=== PATIENT | male | born 1960 | race African-American/Black ===

== ENCOUNTER 2016-10-06 21:30 | Inpatient (IN) ==
[2016-10-06] MEDS ORDERED: SODIUM CHLORIDE 0.9% 1,000 ML IV STA (21:53)
[2016-10-06] MEDS ORDERED: cefTRIAXone 1,000 MG in SODIUM CHLORIDE 0.9% 100 ML IV STA (21:54)
[2016-10-06] MEDS ORDERED: ACETAMINOPHEN 500 MG TABLET PO STA (21:54)
[2016-10-06 22:08] LABS: Basophils # 0.1 10*3/uL (0.0-0.2); Basophils % 0.4 % (0.0-0.8); Eosinophils # 0.2 10*3/uL (0.0-0.87); Eosinophils % 1.5 % (0.00-10.9); Hematocrit 51.6 VOL% (42.0-52.0); Hemoglobin 18.1 GM/DL (14.0-18.0); Immature Granulocytes % 0.5 %; Immature Granulocytes Absolute 0.08 #; Lymphocytes # 1.8 10*3/uL (1.4-4.0); Lymphocytes % 11.1 % (21.2-54.2); Mean Corpuscular HGB Conc 35.1 GM/DL (32-36); Mean Corpuscular Hemoglobin 30 PG (27-34); Mean Corpuscular Volume 86.4 FL (87-102); Mean Platelet Volume 12.2 FL (9.6-12.0); Monocytes # 1.1 10*3/uL (0.11-0.8); Monocytes % 6.6 % (1.7-12.7); Neutrophils % 79.9 % (38.7-73.9); Platelet Count 149 T/CUMM (130-400); Red Blood Count 5.97 MC/CUMM (3.8-5.5); Red Cell Distribution Width 15.2 % (9.3-17.3); White Blood Count 16.3 T/CUMM (4-12)
--- NOTE | 2016-10-06 22:11 | Emergency Department Note ---
I, Ramya Moulton, am scribing for, and in the presence of, Serenity Landis DO 21:58. IBoby Debra, DO, personally performed the services described in this documentation, ascribed by Ramya Moulton in my presence, and it is both accurate and complete . Arrival - Arrival Chief Complaint: Abdominal / Flank Pain Stated Complaint: dizzy and cold ED Nursing Triage Note: c/o being "cold" temp 102.5 at time of triage. pt states that he is also having left flank pain. pt states that he has been on several antibiotics for a uti since last year. reports occasional burning with urination. Mode of Arrival: Wheelchair Limitations: No Limitations Source: Patient - History of Present Illness HPI Narrative: Pt is a 56 y/o female who came to ED with c/o fever of 102. 5, and left flank pain that started this morning when "hopping" in bed. Pt notes he was extremely cold and dysuria. Pt has been treated for a UTI since last year. Pt states he is quitting smoking tobacco. PMHx of STENTS X2, right coronary artery; HLD; PSA HIGH, BIOPSY DONE 03/24/15 AT [facility], complicating sepsis 03/2015; HTN. 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 Onset (ago): hour(s) Consistency: constant Severity: moderate Severity scale (1-10): 5 Quality: aching (cold) Allergies/Adverse Reactions: Allergies Allergy/AdvReac Type Severity Reaction Status Date / Time No Known Allergies Allergy Unverified 06/29/16 20:01 Home Medications: Home Medications Medication Instructions Recorded Confirmed Type amLODIPine [Norvasc] 10 mg PO DAILY #30 tablet 10/19/14 10/06/16 Rx LORazepam TAB [Ativan Tab] 1 mg PO BID PRN 03/28/15 10/06/16 History Oxycodone HCl/Acetaminophen 1 each PO Q6HR PRN 03/28/15 10/06/16 History [Percocet 10-325 mg Tablet] Metoprolol Succinate Xl [Toprol Xl] 50 mg PO DAILY 07/28/15 10/06/16 History cloNIDine TAB [Catapres Tab] 0.1 mg PO BID 07/28/15 10/06/16 History Aspirin [Aspirin EC] 1 tablet PO DAILY 10/06/16 10/06/16 History Review of System - Review of System 12 point system: reviewed and no additional remarkable complaints except as stated - Review of System Constitutional: Present: fever. Absent: chills Respiratory: Absent: respiratory distress Cardiovascular: Absent: chest pain Gastrointestinal: Present: abdominal pain. Absent: nausea, vomiting Genitourinary male: Present: dysuria Musculoskeletal: Present: lower back pain (right). Absent: arm pain, leg pain, neck pain Skin: Absent: rash Neurological: Absent: headache Medical,Surgical,& Family Hx - Medical History Cardio: History of: Hypertension, Cardiovascular Problems (STENTS X2, right coronary artery) No history of: CAD (negative MPI October 2014) Psychological: History of: Anxiety Disorders Endocrine: History of: Dyslipidemia Respiratory: History of: Obstructive Sleep Apnea (felt to be cause of erythrocytosis failed to keep sleep study appointment) Genitourinary: History of: Prostate Problems (PSA HIGH, BIOPSY DONE 03/24/15 AT [facility], complicating sepsis 03/2015) Hematology: History of: Blood Disorders (erythrocytosis) - Surgical History Cardiac Surgeries: Sugical HX of: Cardiac Catheterization (STENTS X2) HEENT Surgeries: Surgical HX of: Tonsilectomy & Adenoidectomy Abdominal Surgeries: Surgical HX of: Appendectomy - Family History Family History: noncontributory Family History: Reports;: Family Cancer (dad prostate), Family Diabetes (all in family), Family Hypertension (mother and father) - Social History Smoking Status: Current every day smoker Frequency of Alcohol Use: None Type of Drug Use: None Functional capacity: independent ambulation Exam Vital Signs: Vital Signs Temperature 100.2 F H 10/07/16 00:23 Pulse Rate 93 H 10/07/16 00:23 Respiratory Rate 24 10/07/16 00:23 Blood Pressure 145/78 10/07/16 00:23 O2 Sat by Pulse Oximetry 96 10/07/16 00:23 - General General appearance: alert, in no apparent distress, obese - Head Head exam: Present: atraumatic, normocephalic - Eye Eye exam: Present: PERRL, EOMI - ENT ENT exam: Present: mucous membranes moist. Absent: mucous membranes dry - Neck Neck exam: Present: full ROM. Absent: tenderness - Chest Chest inspection: Present: symmetric chest wall rise. Absent: tenderness - Respiratory Respiratory exam: Present: normal lung sounds bilaterally. Absent: respiratory distress - Cardiovascular Cardiovascular exam: Present: tachycardia, normal heart sounds - Abdominal Exam Abdominal exam: Present: soft, tenderness (suprapubic), normal bowel sounds. Absent: distention, guarding, rebound - Extremities Exam Extremities exam: Present: full ROM. Absent: tenderness, pedal edema - Back Exam Back exam: Present: full ROM, tenderness (right flank tenderness) - Neurological Exam Neurological exam: Present: alert, oriented X3, CN II-XII intact. Absent: motor sensory deficit - Psychiatric Psychiatric exam: Present: normal affect, normal mood - Skin Skin exam: Present: warm (warm to the touch), dry Course Course Narrative: spoke with hospitalist who will admit pt. Results - Labs CBC & BMP: 10/06/16 21:50 10/06/16 21:50 Lab Results: I have reviewed the patients labs Labs: Laboratory Tests 10/06/16 10/06/16 21:50 21:50 WBC 16.3 H RBC 5.97 H Hgb 18.1 H MCV 86.4 L MPV 12.2 H Neut % (Auto) 79.9 H Lymph % (Auto) 11.1 L Neut # (Auto) 13.0 H [place] # (Auto) 1.1 H Urine Appearance Slightly hazy Urine pH 6.0 Ur Specific [place] 1.011 Urine Blood Moderate Urine Urobilinogen < 2.0 H Urine Leukocytes Large H Urine RBC 5 Urine WBC 44 Ur Squamous Epith Cells Occasional Urine Bacteria Many Urine Mucus Occasional Laboratory Tests 10/06/16 21:50 Potassium 3.4 L ALT 12 L Globulin 4.0 H Albumin/Globulin Ratio 0.8 L Disposition Clinical Impression: UTI (urinary tract infection), Abdominal pain Case discussed with: patient Disposition: Still a Patient Condition: Stable Time of Disposition: 01:09 Contact your physician if you experience:: fever over 101, Nausea/Vomiting
[2016-10-06] MEDS ORDERED: SODIUM CHLORIDE 0.9% 100 ML IV ONE (22:12)
[2016-10-06] MEDS ORDERED: cefTRIAXone 1,000 MG VIAL ONE (22:12)
[2016-10-06] MEDS ORDERED: ACETAMINOPHEN 500 MG TABLET ONE (22:12)
[2016-10-06 22:17] LABS: Apearance,Urine Slightly Hazy (Clear); Bacteria,Urine Many /HPF (Few); Bilirubin,Urine Negative (Negative); Blood, Urine Moderate mg/dL (Negative); Glucose,Urine (UA) Negative (Negative); Ketones,Urine Negative (Negative); Mucus,Urine Occasional /LPF (Occasional); Nitrite,Urine Negative (Negative); Protein,Urine Negative; RBC,Urine 5 /HPF (0-4); Squamous Epithelial Cell,Urine Occasional /HPF (0-10); Urine Color Yellow (Yellow); Urine Specific Gravity 1.011 (1.001-1.035); Urine Urobilinogen < 2.0 EU/DL (0.2-1.0); WBC,Urine 44 /HPF (0-6)
[2016-10-06 23:01] LABS: Albumin 3.5 G/DL (3.4-5.0); Bilirubin,Total 0.7 MG/DL (0.2-1.0); Calcium 8.6 MG/DL (8.5-10.1); Osmolality,Calculated 277.4 MOS/KG (273-304); Potassium 3.4 MMOL/L (3.5-5.1); Total Protein 7.5 G/DL (6.4-8.3)
[2016-10-07] MEDS ORDERED: LORazepam 1 MG TABLET PO PRN (01:41)
[2016-10-07] MEDS ORDERED: ACETAMINOPHEN 325 MG TABLET PO PRN (01:41)
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
[2016-10-07 02:40] LABS: % Iron Saturation 10.9 % (18-50); Ferritin 76.1 ng/ml (26-388)
[2016-10-07] MEDS: DEXTROSE 5% NACL 0.45% 1,000 ML IV SCH (03:00)
[2016-10-07 05:50] LABS: Risk Ratio 3.24
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
[2016-10-07] MEDS: metroNIDAZOLE 500 MG TABLET PO SCH ×2 (06:39→13:02)
--- NOTE | 2016-10-07 07:48 | Urology Consultation ---
History of Present Illness - Data of Consult Consult date: 10/07/16 - Consult Narrative History of present illness: Mr. Pena is a 56 year old male This 56-year-old black male is seen in consultation because of urinary tract infection associated with elevated temperature and elevated white count. The patient has a past history of an elevated PSA and is seeing a urologist in [place]. He has had a prostate biopsy at [facility] and developed sepsis following this. This was about 1 year ago. He has a family history of prostate cancer with his father having this and is at an advanced age. He also has a history of passing one stone. He has been treated several times this year by his nurse practitioner with antibiotics for urinary tract infection but most of these apparently were asymptomatic. The day of admission the patient developed fever and chills and was evaluated in the emergency room and was found to have a urinary tract infection and was admitted. He says his symptoms were similar to those that he developed after sepsis from the biopsy. He is complaining of low back pain primarily on the left side and dysuria. He denies any gross hematuria or difficulty voiding and other than stones and infection and elevate an elevated PSA he has no past history of any serious urological problems. He has an elevated white count and pyuria on urinalysis and his CT scan shows bilateral renal stones with small 2-3 mm stone on the right and larger stones up to 10 mm on the left but no ureteral stones no hydronephrosis no evidence of pyelonephritis. There is evidence of prostate enlargement on physical examination the patient's abdomen is soft and nontender examination of the penis and scrotum is normal. He is got to firm freely movable nodules in the left scrotum that are not associated with the testicle or epididymis. His rectal exam is negative and I am unable to adequately examine his prostate due to his size. I think the patient probably has an acute prostatitis and I agree with the current antibiotics. I am going to get a KUB to see if the stones are visualized and check a bladder scan to evaluate bladder emptying. He may eventually need a cystoscopic exam CC: Alberto Vanegas MD - Home Medications and Allergies Home Medications: Home Medications Medication Instructions Recorded Confirmed Type amLODIPine [Norvasc] 10 mg PO DAILY #30 tablet 10/19/14 10/06/16 Rx LORazepam TAB [Ativan Tab] 1 mg PO BID PRN 03/28/15 10/06/16 History Oxycodone HCl/Acetaminophen 1 each PO Q6HR PRN 03/28/15 10/06/16 History [Percocet 10-325 mg Tablet] Metoprolol Succinate Xl [Toprol Xl] 50 mg PO DAILY 07/28/15 10/06/16 History cloNIDine TAB [Catapres Tab] 0.1 mg PO BID 07/28/15 10/06/16 History Aspirin [Aspirin EC] 1 tablet PO DAILY 10/06/16 10/06/16 History Allergies/Adverse Reactions: Allergies Allergy/AdvReac Type Severity Reaction Status Date / Time No Known Allergies Allergy Unverified 06/29/16 20:01 Exam - Constitutional Vitals: Period Temp Pulse Resp BP Sys/Mortensen Pulse Ox Last 24 Hr 99.3 F-102.5 F 93-113 19-24 141-161/71-100 94-99 Results - Labs CBC & BMP: 10/06/16 21:50 10/06/16 21:50
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
--- NOTE | 2016-10-07 09:20 | Event Note ---
The patient was admitted for management of urinary tract infection. Urology has seen the patient. The patient has bilateral stones, but none appear obstructing. Urine culture is growing gram-negative rods. He is currently receiving cefuroxime and metronidazole. We will continue these antibiotics pending urine culture results.
[2016-10-07] MEDS: amLODIPine 10 MG TABLET PO SCH (09:41)
[2016-10-07] MEDS: METOPROLOL SUCCINATE XL 50 MG TABLET PO SCH (09:41)
[2016-10-07] MEDS: ASPIRIN EC 81 MG TABLET PO SCH (09:41)
[2016-10-07] MEDS: cloNIDine 0.1 MG TABLET PO SCH ×2 (09:42→20:09)
[2016-10-07] MEDS: oxyCODONE/ACETAMINOPHEN 5-325 MG TABLET PO PRN ×2 (09:42→20:20)
[2016-10-07] MEDS ORDERED: CEFUROXIME INJ 1,500 MG in SODIUM CHLORIDE 0.9% 100 ML IV SCH (12:00)
--- NOTE | 2016-10-07 16:41 | Infectious Disease Consult ---
Assessment and Plan (1) Nephrolithiasis Status: Acute Assessment and plan: The patient asked me why he keeps getting these urinary tract infections and I informed him that nephrolithiasis is the cause. As long as he has stones he will remain at increased risk for UTIs. He does have a an enlarged prostate and this may be contributing to recurring UTIs as well. He was advised that he will need urology for follow-up on discharge regarding eradicating the stones. Current Visit: Yes (2) UTI (urinary tract infection) Status: Acute Assessment and plan: Clinically I think the patient has left pyelonephritis given the CVA tenderness [though there was no mention of perinephric stranding on the CT scan]. He might have had some transient obstruction related to the renal stones. Recommendations: 1. Since the patient has been on several courses of antibiotics over the past few months I prefer to have him on a third-generation cephalosporin therefore I will stop the cefuroxime and put him on ceftriaxone 1 g daily 2. Follow-up results of the urine culture as well as blood cultures Thank you very much for the consult. Will follow. Current Visit: Yes Qualifiers: Urinary tract infection type: site unspecified Hematuria presence: with hematuria Qualified Code(s): N39.0 - Urinary tract infection, site not specified; R31.9 - Hematuria, unspecified (3) Sepsis Problem details: Prostate biopsy completed at [facility] 03/24/15. @ of 2 blood cultures are growing gram-negative rods, E. Coli. 03/24/15 ID and susceptibility lab reports indicate that this E Coli is resistant to ampicillin , quinolones, sulfa, and tetracycline. D/C empiric gentamicin and Levaquin combination therapy (received 4 days), begin rocephin Rx. Ceftin may be a reasonable oral Abx treatment option after D/C home. Status: Acute Assessment and plan: Due to urinary tract infection with leukocytosis and fever. I would not be surprised if the patient's blood cultures, positive. Antibiotic coverage has been expanded and will follow up the cultures and adjust accordingly. Current Visit: No Qualifiers: Sepsis type: sepsis due to unspecified organism Qualified Code(s): A41.9 - Sepsis, unspecified organism (4) increased cholesterol Status: Acute Current Visit: No History of Present Illness Chief complaint: Recurrent UTI History of present illness: Mr. Pena is a 56 year old male with a history of nephrolithiasis presented to hospital yesterday after he developed severe Reiger's. He was found to be febrile on admission. The patient notes that he has been having increased urinary frequency since 1-2 days and also left sided pain. He said the urine appeared dark but no gross blood. He has been having problems with recurring UTIs over the past 2 years. He says he was in hospital for the same thing in about June this year. Since then he has been on several courses of oral antibiotics, last being ciprofloxacin. Home Medications Medication Instructions Recorded Confirmed Type amLODIPine [Norvasc] 10 mg PO DAILY #30 tablet 10/19/14 10/06/16 Rx LORazepam TAB [Ativan Tab] 1 mg PO BID PRN 03/28/15 10/06/16 History Oxycodone HCl/Acetaminophen 1 each PO Q6HR PRN 03/28/15 10/06/16 History [Percocet 10-325 mg Tablet] Metoprolol Succinate Xl [Toprol Xl] 50 mg PO DAILY 07/28/15 10/06/16 History cloNIDine TAB [Catapres Tab] 0.1 mg PO BID 07/28/15 10/06/16 History Aspirin [Aspirin EC] 1 tablet PO DAILY 10/06/16 10/06/16 History Allergies Allergy/AdvReac Type Severity Reaction Status Date / Time No Known Allergies Allergy Unverified 06/29/16 20:01 12 point system: reviewed and no additional remarkable complaints except as stated (Per HPI, of note no diarrhea) Medical,Surgical,& Family Hx - Medical History Cardio: History of: Hypertension, Cardiovascular Problems (STENTS X2, right coronary artery) No history of: CAD (negative MPI October 2014) Psychological: History of: Anxiety Disorders Endocrine: History of: Dyslipidemia Respiratory: History of: Obstructive Sleep Apnea (felt to be cause of erythrocytosis failed to keep sleep study appointment) Genitourinary: History of: Prostate Problems (PSA HIGH, BIOPSY DONE 03/24/15 AT [facility], complicating sepsis 03/2015) Hematology: History of: Blood Disorders (erythrocytosis) - Surgical History Cardiac Surgeries: Sugical HX of: Cardiac Catheterization (STENTS X2, 2006, around 2010) HEENT Surgeries: Surgical HX of: Tonsilectomy & Adenoidectomy Abdominal Surgeries: Surgical HX of: Appendectomy, Hernia Repair Comment Only: Cholecystectomy (patietn does not know.) Orthopedic Surgeries: Surgical HX of;: Orthopedic Surgery (left shoulder surgery ) - Family History Family History: Reports;: Family Cancer (dad prostate), Family Diabetes (all in family), Family Hypertension (mother and father) - Social History Smoking Status: Current every day smoker Frequency of Alcohol Use: None Type of Drug Use: None Infectious Disease Exam H&P - Constitutional Vitals: Vital Signs Temp Pulse Resp BP Pulse Ox 99.1 F 83 20 148/84 97 10/07/16 16:20 10/07/16 16:20 10/07/16 16:20 10/07/16 16:20 10/07/16 16:20 Intake and Output 10/07/16 10/07/16 10/07/16 07:59 15:59 23:59 Intake Total 300 / 300 Balance 300 / 300 Intake: Oral 300 / 300 Other: Voiding Method Urinal # Voids 600 Weight 104.372 kg Patient Weight 10/07/16 23:59 Weight 104.372 kg Exam: General: Patient relatively comfortable HEENT: Mucous membranes pink and moist, anicteric acyanotic, KAYDEN, no oropharyngeal exudates Neck: Supple, no thyroid gland enlargement, no lymphadenopathy Respiratory system: Breath sounds vesicular, no crepitations or wheezes Cardiovascular: Normal S1 and S2, no murmurs appreciated Abdomen: Normal bowel sounds, soft nontender throughout, no organomegaly or mass Genitourinary: He has left CVA tenderness but no suprapubic pain or bladder distention Extremities: no edema Skin: No rash Reports - Labs CBC & BMP: 10/06/16 21:50 10/06/16 21:50 Labs: Laboratory Results - last 24 hr 10/06/16 10/06/16 10/06/16 21:50 21:50 21:50 WBC 16.3 H RBC 5.97 H Hgb 18.1 H Hct 51.6 MCV 86.4 L MCH 30 MCHC 35.1 RDW 15.2 Plt Count 149 MPV 12.2 H Neut % (Auto) 79.9 H Lymph % (Auto) 11.1 L Porter % (Auto) 6.6 Eos % (Auto) 1.5 Baso % (Auto) 0.4 Neut # (Auto) 13.0 H Lymph # (Auto) 1.8 Porter # (Auto) 1.1 H Eos # (Auto) 0.2 Baso # (Auto) 0.1 Immature Gran % 0.5 Nucleated RBC % 0.0 Immature Gran # 0.08 Nucleated RBCs # 0.00 Sodium 140 Potassium 3.4 L Chloride 107 Carbon Dioxide 24 Anion Gap 12.4 BUN 11 Creatinine 0.90 GFR Calculation 142 BUN/Creatinine Ratio 12.00 Glucose 92 Calculated Osmolality 277.4 Lactic Acid Calcium 8.6 Iron TIBC % Saturation Ferritin Total Bilirubin 0.70 AST 10 ALT 12 L Alkaline Phosphatase 81 Total Protein 7.5 Albumin 3.5 Globulin 4.0 H Albumin/Globulin Ratio 0.8 L Triglycerides Cholesterol LDL Cholesterol VLDL Cholesterol HDL Cholesterol Heart Disease Risk Ratio Lipase Urine Color Yellow Urine Appearance Slightly hazy Urine pH 6.0 Ur Specific [place] 1.011 Urine Protein Negative Urine Glucose (UA) Negative Urine Ketones Negative Urine Blood Moderate Urine Nitrate Negative Urine Bilirubin Negative Urine Urobilinogen < 2.0 H Urine Leukocytes Large H Urine RBC 5 Urine WBC 44 Ur Squamous Epith Cells Occasional Urine Bacteria Many Urine Mucus Occasional Ur Culture Indicated? Results to follow 10/06/16 10/06/16 10/07/16 21:50 21:50 00:00 WBC RBC Hgb Hct MCV MCH MCHC RDW Plt Count MPV Neut % (Auto) Lymph % (Auto) Porter % (Auto) Eos % (Auto) Baso % (Auto) Neut # (Auto) Lymph # (Auto) Porter # (Auto) Eos # (Auto) Baso # (Auto) Immature Gran % Nucleated RBC % Immature Gran # Nucleated RBCs # Sodium Potassium Chloride Carbon Dioxide Anion Gap BUN Creatinine GFR Calculation BUN/Creatinine Ratio Glucose Calculated Osmolality Lactic Acid 1.1 Calcium Iron 26 L TIBC 238 L % Saturation 10.9 L Ferritin 76.1 Total Bilirubin AST ALT Alkaline Phosphatase Total Protein Albumin Globulin Albumin/Globulin Ratio Triglycerides Cholesterol LDL Cholesterol VLDL Cholesterol HDL Cholesterol Heart Disease Risk Ratio Lipase 115.0 Urine Color Urine Appearance Urine pH Ur Specific [place] Urine Protein Urine Glucose (UA) Urine Ketones Urine Blood Urine Nitrate Urine Bilirubin Urine Urobilinogen Urine Leukocytes Urine RBC Urine WBC Ur Squamous Epith Cells Urine Bacteria Urine Mucus Ur Culture Indicated? 10/07/16 04:57 WBC RBC Hgb Hct MCV MCH MCHC RDW Plt Count MPV Neut % (Auto) Lymph % (Auto) Porter % (Auto) Eos % (Auto) Baso % (Auto) Neut # (Auto) Lymph # (Auto) Porter # (Auto) Eos # (Auto) Baso # (Auto) Immature Gran % Nucleated RBC % Immature Gran # Nucleated RBCs # Sodium Potassium Chloride Carbon Dioxide Anion Gap BUN Creatinine GFR Calculation BUN/Creatinine Ratio Glucose Calculated Osmolality Lactic Acid Calcium Iron TIBC % Saturation Ferritin Total Bilirubin AST ALT Alkaline Phosphatase Total Protein Albumin Globulin Albumin/Globulin Ratio Triglycerides 150 Cholesterol 120 LDL Cholesterol 62.0 VLDL Cholesterol 30.0 HDL Cholesterol 37 L Heart Disease Risk Ratio 3.24 Lipase Urine Color Urine Appearance Urine pH Ur Specific [place] Urine Protein Urine Glucose (UA) Urine Ketones Urine Blood Urine Nitrate Urine Bilirubin Urine Urobilinogen Urine Leukocytes Urine RBC Urine WBC Ur Squamous Epith Cells Urine Bacteria Urine Mucus Ur Culture Indicated? - Reports Microbiology: Microbiology 10/06/16 Unknown Urine Culture - Preliminary Urine,Voided Gram Negative Rods Past cultures reviewed with E. coli every time relatively sensitive. The patient had E. coli bloodstream infection about 2 years ago. - Diagnostic Findings Procedure: CT Abdomen and Pelvis: report reviewed by me (No mention of perinephric stranding, he has nephrolithiasis bilaterally including a 1 cm stone in the left kidney, nonspecific edema of the sigmoid colon)
[2016-10-07] MEDS ORDERED: cefTRIAXone 1,000 MG in SODIUM CHLORIDE 0.9% 100 ML IV SCH (17:00)
[2016-10-08] MEDS: DEXTROSE 5% NACL 0.45% 1,000 ML IV SCH ×2 (00:50→15:33)
--- NOTE | 2016-10-08 07:53 | Urology Progress Note ---
Urology - PN: Subj Interval history: The patient's temperature is down. His blood and urine cultures are positive. He has a low residual urine 66 cc on bladder scan. Stones were not seen on KUB so I will get tomograms to see if there are visualized on this x-ray. This could possibly be uric acid stones since her not seen on x-ray and some of them on the left side were 10 mm Exam - Constitutional Vitals: Period Temp Pulse Resp BP Sys/Mortensen Pulse Ox Last 24 Hr 97.5 F-100.3 F 80-99 18-22 131-152/81-91 92-97 Results - Labs CBC & BMP: 10/06/16 21:50 10/06/16 21:50
[2016-10-08] MEDS ORDERED: VANCOMYCIN INJ 1,500 MG in SODIUM CHLORIDE 0.9% 500 ML IV SCH (09:00)
[2016-10-08] MEDS: METOPROLOL SUCCINATE XL 50 MG TABLET PO SCH (09:12)
[2016-10-08] MEDS: ASPIRIN EC 81 MG TABLET PO SCH (09:12)
[2016-10-08] MEDS: cloNIDine 0.1 MG TABLET PO SCH ×2 (09:12→20:59)
[2016-10-08] MEDS: amLODIPine 10 MG TABLET PO SCH (09:12)
--- NOTE | 2016-10-08 10:48 | Infectious Disease Progress ---
Assessment and Plan (1) Nephrolithiasis Status: Acute Assessment and plan: Recurrent urinary tract infections due to nephrolithiasis. As long as he has stones he will remain at increased risk for UTIs. He does have a an enlarged prostate and this may be contributing to recurring UTIs as well. He has been advised that he will need urology for follow-up on discharge regarding eradicating the stones. Current Visit: Yes (2) UTI (urinary tract infection) Status: Acute Assessment and plan: Clinically I think the patient has left pyelonephritis given the CVA tenderness [though there was no mention of perinephric stranding on the CT scan]. He might have had some transient obstruction related to the renal stones. Recommendations: 1. Given the susceptibility of decline we can de-escalate from ceftriaxone to cefazolin 2. When he gets discharged home he can probably go on cefuroxime 500 mg p.o. twice a day for 2 weeks Current Visit: Yes Qualifiers: Urinary tract infection type: site unspecified Hematuria presence: with hematuria Qualified Code(s): N39.0 - Urinary tract infection, site not specified; R31.9 - Hematuria, unspecified (3) Sepsis Problem details: Prostate biopsy completed at [facility] 03/24/15. @ of 2 blood cultures are growing gram-negative rods, E. Coli. 03/24/15 ID and susceptibility lab reports indicate that this E Coli is resistant to ampicillin , quinolones, sulfa, and tetracycline. D/C empiric gentamicin and Levaquin combination therapy (received 4 days), begin rocephin Rx. Ceftin may be a reasonable oral Abx treatment option after D/C home. Status: Acute Assessment and plan: Due to urinary tract infection with leukocytosis and fever. No positive blood cultures. Leukocytosis improved and no fever for 24 hours. Patient overall improved. Current Visit: No Qualifiers: Sepsis type: sepsis due to unspecified organism Qualified Code(s): A41.9 - Sepsis, unspecified organism (4) increased cholesterol Status: Acute Current Visit: No (5) Positive blood culture Status: Acute Assessment and plan: Probably contaminant. I repeated blood cultures and put the patient on empiric vancomycin. If it turns out to be staph epidermidis will stop the vancomycin. Current Visit: Yes Infectious Disease - PN: Subj Interval history: Patient doing relatively okay, improved pain to the left side. No fever. Appetite is good no nausea vomiting or diarrhea. Infectious Disease Exam (PN) - Constitutional Vitals: Temp Pulse Resp BP Pulse Ox 98.9 F 70 20 143/100 90 L 10/08/16 07:40 10/08/16 07:40 10/08/16 07:40 10/08/16 07:40 10/08/16 07:40 General appearance: over weight Exam: General appearance: no acute distress - Eye Eye exam: Present: EOMI. no icterus Pupils: Present: KAYDEN - ENT ENT exam: no oral exudates - Respiratory Respiratory exam: vesicular BS, no crepitations or wheezes - Cardiovascular Cardiovascular exam: regular rate and rhythm, no murmurs - GI/Abdominal GI/Abdominal exam: normal bowel sounds, soft, less tenderness to left flank region - Extremities Exam Extremities exam: no edema - Skin Skin exam: no rash Results - Labs CBC & BMP: 10/06/16 21:50 10/06/16 21:50 Lab Results: I have reviewed the past 24 hour labs (E. coli from urine, gram- positive cocci is 1 of 2 blood cultures, not staph aureus)
--- NOTE | 2016-10-08 11:20 | Hospitalist Progress Note ---
Assessment and Plan - Time spent with patient Time spent with patient: Greater than 30 minutes (1) SIRS (systemic inflammatory response syndrome) Status: Acute Current Visit: No (2) Renal calculus, bilateral Problem details: 7 mm right mid pole stone and 12 mm left upper pole stone reported on ultrasound exam. No associated acute obstruction reported. Status : Chronic Current Visit: No (3) UTI (urinary tract infection) Status: Acute Current Visit: Yes Qualifiers: Urinary tract infection type: site unspecified Hematuria presence: with hematuria Qualified Code(s): N39.0 - Urinary tract infection, site not specified; R31.9 - Hematuria, unspecified (4) Positive blood culture Status: Acute Assessment and plan: We will continue antibiotics per infectious disease. Repeat blood cultures to ensure clearance of bacteremia vs contamination, urinalysis urine cultures. Repeat CBC and CMP to see if leukocytosis has improved since admission. Pain control. IV fluid hydration to encourage passage of stone. Current Visit: Yes Hospitalist: Subjective Interval history: Admitted for a recurrent urinary tract infection suspected to be related to his renal stones. Seen by urology, no plans for any procedures since the stones are nonobstructive. Blood cultures were positive for gram-positive, not MRSA. No fever, however he is last CBC showed marked leukocytosis. Exam - Constitutional Vitals: Period Temp Pulse Resp BP Sys/Mortensen Pulse Ox Last 24 Hr 97.5 F-99.1 F 70-90 18-22 141-152/81-100 90-97 General appearance: normal weight, no acute distress - Head Head exam: Present: normocephalic, atraumatic - Eye Eye exam: Present: EOMI Pupils: Present: KAYDEN - ENT ENT exam: Present: normal external ear exam - Respiratory Respiratory exam: Present: clear to auscultation bilaterally, chest wall tenderness. Absent: prolonged expiratory phase - Cardiovascular Cardiovascular exam: Present: regular rate and rhythm. Absent: JVD - GI/Abdominal GI/Abdominal exam: Present: normal bowel sounds, soft. Absent: distended, tenderness - Neurological Exam Neurological exam: Present: alert, oriented X3 - Psychiatric Psychiatric exam: Present: normal affect, normal mood - Skin Skin exam: Present: normal color, warm, dry Results - Labs CBC & BMP: 10/08/16 11:43 10/06/16 21:50 Lab Results: I have reviewed the past 24 hour labs Specialty Discharge - Follow Up or Referrals Follow up with: Joseph Bender MD [Physician] - 10/29/16 9:30 am
[2016-10-08 12:01] LABS: Basophils # 0.1 10*3/uL (0.0-0.2); Basophils % 0.6 % (0.0-0.8); Eosinophils # 0.2 10*3/uL (0.0-0.87); Hematocrit 50.7 VOL% (42.0-52.0); Hemoglobin 17.3 GM/DL (14.0-18.0); Immature Granulocytes % 0.8 %; Immature Granulocytes Absolute 0.08 #; Lymphocytes # 2.7 10*3/uL (1.4-4.0); Lymphocytes % 27.5 % (21.2-54.2); Mean Corpuscular HGB Conc 34.1 GM/DL (32-36); Mean Corpuscular Hemoglobin 30 PG (27-34); Mean Corpuscular Volume 86.5 FL (87-102); Monocytes # 1.3 10*3/uL (0.11-0.8); Monocytes % 13.4 % (1.7-12.7); Neutrophils # 5.5 10*3/uL (1.4-7.4); Neutrophils % 55.7 % (38.7-73.9); Platelet Count 115 T/CUMM (130-400); Red Blood Count 5.86 MC/CUMM (3.8-5.5); Red Cell Distribution Width 14.8 % (9.3-17.3); White Blood Count 9.8 T/CUMM (4-12)
[2016-10-08 12:32] LABS: Albumin 3.2 G/DL (3.4-5.0); Bilirubin,Total 0.7 MG/DL (0.2-1.0); Calcium 8.3 MG/DL (8.5-10.1); Osmolality,Calculated 280.1 MOS/KG (273-304); Potassium 3.7 MMOL/L (3.5-5.1); Total Protein 7.2 G/DL (6.4-8.3)
[2016-10-08] MEDS: ceFAZolin 2,000 MG in PREMIX 1 EACH IV SCH ×2 (15:32→19:30)
[2016-10-08] MEDS: oxyCODONE/ACETAMINOPHEN 5-325 MG TABLET PO PRN (20:58)
[2016-10-09] MEDS: ceFAZolin 2,000 MG in PREMIX 1 EACH IV SCH ×2 (04:12→11:03)
[2016-10-09 05:37] LABS: Basophils % 0.5 % (0.0-0.8); Eosinophils % 3.3 % (0.00-10.9); Hematocrit 50.1 VOL% (42.0-52.0); Hemoglobin 16.9 GM/DL (14.0-18.0); Immature Granulocytes % 0.4 %; Lymphocytes # 2.8 10*3/uL (1.4-4.0); Lymphocytes % 32.7 % (21.2-54.2); Mean Corpuscular HGB Conc 33.7 GM/DL (32-36); Mean Corpuscular Hemoglobin 29 PG (27-34); Mean Platelet Volume 11.6 FL (9.6-12.0); Monocytes % 8.1 % (1.7-12.7); Neutrophils # 4.7 10*3/uL (1.4-7.4); Platelet Count 118 T/CUMM (130-400); Red Blood Count 5.76 MC/CUMM (3.8-5.5); Red Cell Distribution Width 14.8 % (9.3-17.3); White Blood Count 8.6 T/CUMM (4-12)
[2016-10-09 05:38] LABS: Eosinophils # 0.3 10*3/uL (0.0-0.87); Immature Granulocytes Absolute 0.03 #; Monocytes # 0.7 10*3/uL (0.11-0.8)
[2016-10-09 06:17] LABS: Albumin 3.1 G/DL (3.4-5.0); Bilirubin,Total 0.6 MG/DL (0.2-1.0); Calcium 8.5 MG/DL (8.5-10.1); Osmolality,Calculated 284.8 MOS/KG (273-304); Potassium 3.7 MMOL/L (3.5-5.1); Total Protein 7.1 G/DL (6.4-8.3)
[2016-10-09] MEDS: DEXTROSE 5% NACL 0.45% 1,000 ML IV SCH (06:20)
[2016-10-09] MEDS: amLODIPine 10 MG TABLET PO SCH (10:04)
[2016-10-09] MEDS: METOPROLOL SUCCINATE XL 50 MG TABLET PO SCH (10:05)
[2016-10-09] MEDS: ASPIRIN EC 81 MG TABLET PO SCH (10:05)
[2016-10-09] MEDS: cloNIDine 0.1 MG TABLET PO SCH (10:05)
[2016-10-09] MEDS: oxyCODONE/ACETAMINOPHEN 5-325 MG TABLET PO PRN (10:11)
--- NOTE | 2016-10-09 10:24 | Urology Progress Note ---
Urology - PN: Subj Interval history: The patient is afebrile and his white count is down. Urine culture is positive for E. coli sensitive to Ancef. Tomograms of the kidneys were ordered but this has not been done so I am going to reorder this. He has stones in the kidney that are not seen on KUB possibly uric acid stones. Exam - Constitutional Vitals: Period Temp Pulse Resp BP Sys/Mortensen Pulse Ox Last 24 Hr 96.3 F-98.3 F 65-87 16-20 133-161/83-93 97-98 Results - Labs CBC & BMP: 10/09/16 05:17 10/09/16 05:17 Specialty Discharge - Follow Up or Referrals Follow up with: Joseph Bender MD [Physician] - 10/29/16 9:30 am ([facility] October AT 10:00)
--- NOTE | 2016-10-09 11:41 | Discharge Summary ---
Hospital Course - Hospital Course Hospital Course: This 56-year-old man was admitted for left flank pain, fever and dysuria, he has had recurrent episodes of urinary tract infection which was treated with antibiotics and subsided. He had a CT scan of the abdomen done which showed left renal calculus which we suspect is because of his recurrent urinary tract infection. Has been seen by urology, no plan for surgical intervention at this time. Seen by infectious disease started on antibiotics, urine cultures again grew E. coli which is sensitive to cefazolin. They recommended 2 weeks of outpatient oral antibiotics. Clinically most of his symptoms have resolved, he is eager for discharge. He will follow-up with urology as outpatient and may be planned for elective lithotripsy at some point when his current infection clears up. On day of discharge, he had been for about 48 hours, he was tolerating orally and also he is hemodynamically stable enough for discharge to outpatient. - Time spent with patient Time with patient DS: Greater than 30 minutes Diagnosis - Discharge Diagnosis (1) SIRS (systemic inflammatory response syndrome) Status: Acute (2) Renal calculus, bilateral Status: Chronic (3) UTI (urinary tract infection) Status: Acute (4) Positive blood culture Status: Acute Specialty Discharge - Follow Up or Referrals Follow up with: Joseph Bender MD [Physician] - 10/29/16 9:30 am ([facility] October AT 10:00) Discharge Plan - Discharge Data Disposition: Disch To Home/Self Care Condition at Discharge: Stable Discharge Diet: advance to your usual diet Activity: resume usual activities as tolerated - Discharge Medications New Cefuroxime Tab [Ceftin] 500 mg PO Q12HR #24 tablet Continue amLODIPine [Norvasc] 10 mg PO DAILY #30 tablet Oxycodone HCl/Acetaminophen [Percocet 10-325 mg Tablet] 1 each PO Q6HR PRN PRN Reason: Pain LORazepam TAB [Ativan Tab] 1 mg PO BID PRN PRN Reason: Anxiety Metoprolol Succinate Xl [Toprol Xl] 50 mg PO DAILY cloNIDine TAB [Catapres Tab] 0.1 mg PO BID Aspirin [Aspirin EC] 1 tablet PO DAILY - Follow Up or Referral Follow Up: Joseph Bender MD [Physician] - 10/29/16 9:30 am ([facility] October AT 10:00) - Forms/Instructions Instructions: Kidney Stones (DC) Additional Discharge Instructions: Urlology follow up in 2 weeks. PCP in 1-2 weeks Exam - Constitutional Vitals: Period Temp Pulse Resp BP Sys/Mortensen Pulse Ox Last 24 Hr 96.3 F-98.3 F 65-87 16-20 133-161/83-93 97-98 Discharge Results Procedures and tests throughout hospitalization: Pending Orders 10/06/16 22:05 Blood Culture Stat 10/08/16 07:09 Blood Culture Stat 10/08/16 11:43 Blood Culture Routine 10/09/16 10:23 XR tomogram charge Stat 10/09/16 16:30 Vancomycin,Trough Routine 10/10/16 04:00 CMP [Comprehensive Metabolic Panel] IN AM Comp Blood Count Auto Diff IN AM 10/11/16 04:00 CMP [Comprehensive Metabolic Panel] IN AM Comp Blood Count Auto Diff IN AM Labs on day of discharge: Labs from last 24 hours 10/09/16 10/09/16 10/08/16 05:17 05:17 11:43 WBC 8.6 RBC 5.76 H Hgb 16.9 Hct 50.1 MCV 87.0 MCH 29 MCHC 33.7 RDW 14.8 Plt Count 118 L MPV 11.6 Neut % (Auto) 55.0 Lymph % (Auto) 32.7 [place] % (Auto) 8.1 Eos % (Auto) 3.3 Baso % (Auto) 0.5 Neut # (Auto) 4.7 Lymph # (Auto) 2.8 [place] # (Auto) 0.7 Eos # (Auto) 0.3 Baso # (Auto) 0.0 Immature Gran % 0.4 Nucleated RBC % 0.0 Immature Gran # 0.03 Nucleated RBCs # 0.00 Sodium 144 142 Potassium 3.7 3.7 Chloride 106 107 Carbon Dioxide 29 26 Anion Gap 12.7 12.7 BUN 12 9 Creatinine 0.70 0.70 GFR Calculation 157 157 BUN/Creatinine Ratio 17.00 12.00 Glucose 84 83 Calculated Osmolality 284.8 280.1 Calcium 8.5 8.3 L Total Bilirubin 0.60 0.70 AST 12 13 ALT 15 L 14 L Alkaline Phosphatase 71 73 Total Protein 7.1 7.2 Albumin 3.1 L 3.2 L Globulin 4.0 H 4.0 H Albumin/Globulin Ratio 0.7 L 0.8 L 10/08/16 11:43 WBC 9.8 D RBC 5.86 H Hgb 17.3 Hct 50.7 MCV 86.5 L MCH 30 MCHC 34.1 RDW 14.8 Plt Count 115 L D MPV 12.0 Neut % (Auto) 55.7 Lymph % (Auto) 27.5 [place] % (Auto) 13.4 H Eos % (Auto) 2.0 Baso % (Auto) 0.6 Neut # (Auto) 5.5 Lymph # (Auto) 2.7 [place] # (Auto) 1.3 H Eos # (Auto) 0.2 Baso # (Auto) 0.1 Immature Gran % 0.8 Nucleated RBC % 0.0 Immature Gran # 0.08 Nucleated RBCs # 0.00 Sodium Potassium Chloride Carbon Dioxide Anion Gap BUN Creatinine GFR Calculation BUN/Creatinine Ratio Glucose Calculated Osmolality Calcium Total Bilirubin AST ALT Alkaline Phosphatase Total Protein Albumin Globulin Albumin/Globulin Ratio Preliminary micro results at discharge 10/08/16 07:09 Blood Culture - Preliminary Blood No growth at 1 day 10/08/16 07:10 Blood Culture - Preliminary Blood No growth at 1 day 10/06/16 22:05 Blood Culture - Preliminary Blood Gram Positive Cocci 10/06/16 21:50 Blood Culture - Preliminary Blood No growth at 1 day DS: Provider Date of admission: 10/07/16 01:36 Primary care physician: . Ryanne PCP Attending physician on admission: John Cook MD Consults: 10/07/16 01:48 Consult to Physician [CONS] Routine Comment: On-call physician/recurr UTI's/normal adult male Consulting Provider: Joseph Bender Consult to Specialist Group: Urology When should Consulting Provider be notified: In am 10/07/16 01:50 Consult to Physician [CONS] Routine Comment: Dr. Reynolds/recurrent UTIs Consulting Provider: Keyla Reynolds Consult to Specialist Group: Infectious Disease When should Consulting Provider be notified: In am 10/08/16 06:48 Consult to Pharmacy [CONS] Routine Reason for Pharmacy Consult: Dose/Manage Vancomycin Discharging clinician: Keo Warren MD
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
[2016-10-09 15:07] VITALS: BP 155/97
--- NOTE | 2016-10-14 12:44 | Physician Query Form ---
CLICK EDIT DOCUMENT TO SELECT QUERY ANSWER --> OK --> SIGN Elana Spicer RN, CCDS Certified Clinical Sql Database Developer W) [phone] (f) [phone] [email or web address]: Make your selection(s) from the choices in EACH section by typing an "x" and enter comments in the comment section. Please use your independent medical judgment in providing your response. This request does not imply that any particular answer is desired or expected. CLINICAL INDICATORS: (Providers should not edit this section) The below diagnosis was documented in the record, but is not consistently noted in subsequent documentation. The medical record indicates that the patient was admitted with an UTI, Sepsis, WBC of 16.3, temp in ER 100.2 that increased temp of 102.5, pulse of 93#, respirations of 24 AND per discharge summary SIR's/ positive blood cultures. As the attending MD can you please clarify if the Sepsis was ? Diagnosis: Sepsis Please clarify the following: ( x) The above diagnosis was monitored, evaluated, and/or treated and is a confirmed diagnosis ( ) The above diagnosis was ruled out ( ) The above diagnosis is still a likely, suspected, probable diagnosis ( ) Other, please specify: ( ) Clinically unable to determine COMMENTS:As time passed, the diagnosis of sepsis was confirmed. Note: leucocytosis, high fever, tachypnea and positive blood cultures. PLEASE ALSO DOCUMENT RESPONSE IN PROGRESS NOTES AND/OR DISCHARGE SUMMARY Use of terms such as suspected, likely, or probable (associated with a specific diagnosis that is being evaluated, monitored, or treated as if it exists) are acceptable and can be restated in the discharge summary if not ruled out. MTDD
== END 2016-10-09 15:00 | disposition home or self-care (01) | DRG 872 ==
LOC: N.ED 21:30 → N.EDINP 10-07 01:36 → SUATTDRO 10-07 01:36 → N.2E 10-07 02:23
PROVIDERS: ADMIT Internal Medicine Infectious Disease; ATTEND Internal Medicine

== ENCOUNTER 2017-06-10 12:38 | Inpatient (IN) ==
[2017-06-10 13:49] LABS: Basophils # 0.1 10*3/uL (0.0-0.2); Basophils % 0.4 % (0.0-0.8); Eosinophils # 0.1 10*3/uL (0.0-0.87); Eosinophils % 0.8 % (0.00-10.9); Hematocrit 55.3 VOL% (42.0-52.0); Hemoglobin 18.5 GM/DL (14.0-18.0); Immature Granulocytes % 0.5 %; Immature Granulocytes Absolute 0.08 #; Lymphocytes # 1.7 10*3/uL (1.4-4.0); Mean Corpuscular HGB Conc 33.5 GM/DL (32-36); Mean Corpuscular Hemoglobin 30 PG (27-34); Mean Corpuscular Volume 88.6 FL (87-102); Mean Platelet Volume 12.5 FL (9.6-12.0); Monocytes # 1.1 10*3/uL (0.11-0.8); Monocytes % 6.7 % (1.7-12.7); Neutrophils # 13.6 10*3/uL (1.4-7.4); Neutrophils % 81.6 % (38.7-73.9); Platelet Count 102 T/CUMM (130-400); Red Blood Count 6.24 MC/CUMM (3.8-5.5); Red Cell Distribution Width 14.9 % (9.3-17.3); White Blood Count 16.7 T/CUMM (4-12)
[2017-06-10 14:00] LABS: Calcium 8.9 MG/DL (8.5-10.1); Osmolality,Calculated 277.7 MOS/KG (273-304); Potassium 4.8 MMOL/L (3.5-5.1)
[2017-06-10] MEDS ORDERED: cefTRIAXone 1,000 MG in SODIUM CHLORIDE 0.9% 100 ML IV STA (14:00)
[2017-06-10] MEDS ORDERED: cefTRIAXone 1,000 MG VIAL ONE (14:05)
[2017-06-10] MEDS ORDERED: SODIUM CHLORIDE 0.9% 1,000 ML IV STA (14:05)
[2017-06-10 15:12] LABS: Apearance,Urine CLEAR (Clear); Bilirubin,Urine Negative (Negative); Blood, Urine Moderate mg/dL (Negative); Glucose,Urine (UA) 150 mg/dL (Negative); Ketones,Urine Negative (Negative); Mucus,Urine Moderate /LPF (Occasional); Nitrite,Urine Negative (Negative); Protein,Urine Negative; RBC,Urine 22 /HPF (0-4); Squamous Epithelial Cell,Urine Occasional /HPF (0-10); Urine Color Yellow (Yellow); Urine Specific Gravity 1.017 (1.001-1.035); Urine Urobilinogen < 2.0 EU/DL (0.2-1.0); WBC,Urine 1 /HPF (0-6)
[2017-06-10] MEDS ORDERED: KETOROLAC 30 MG/1 ML VIAL ONE (16:39)
[2017-06-10] MEDS ORDERED: KETOROLAC 30 MG/1 ML VIAL IV STA (16:45)
[2017-06-10] MEDS ORDERED: ACETAMINOPHEN 325 MG TABLET PO PRN (17:18)
[2017-06-10] MEDS ORDERED: ONDANSETRON 4 MG/2 ML VIAL IV PRN (17:18)
[2017-06-10] MEDS ORDERED: cefTRIAXone 1,000 MG in SYRINGE 1 EACH IV SCH (17:30)
[2017-06-10] MEDS: ENOXAPARIN 40 MG/0.4 ML SYRINGE SUBCUT SCH (18:10)
[2017-06-10] MEDS: SODIUM CHLORIDE 0.9% 1,000 ML IV SCH (18:10)
[2017-06-10] MEDS: MORPHINE 2 MG/1 ML SYRINGE IV PRN (18:11)
[2017-06-11] MEDS: SODIUM CHLORIDE 0.9% 1,000 ML IV SCH ×2 (06:43→21:32)
[2017-06-11 06:56] LABS: Basophils # 0.1 10*3/uL (0.0-0.2); Basophils % 0.3 % (0.0-0.8); Eosinophils # 0.2 10*3/uL (0.0-0.87); Eosinophils % 0.8 % (0.00-10.9); Hematocrit 49.3 VOL% (42.0-52.0); Hemoglobin 16.7 GM/DL (14.0-18.0); Immature Granulocytes % 0.9 %; Immature Granulocytes Absolute 0.18 #; Lymphocytes # 4.8 10*3/uL (1.4-4.0); Lymphocytes % 22.5 % (21.2-54.2); Mean Corpuscular HGB Conc 33.9 GM/DL (32-36); Mean Corpuscular Hemoglobin 30 PG (27-34); Mean Corpuscular Volume 88.2 FL (87-102); Mean Platelet Volume 11.7 FL (9.6-12.0); Monocytes # 2.1 10*3/uL (0.11-0.8); Monocytes % 9.7 % (1.7-12.7); Neutrophils # 13.9 10*3/uL (1.4-7.4); Neutrophils % 65.8 % (38.7-73.9); Platelet Count 118 T/CUMM (130-400); Red Blood Count 5.59 MC/CUMM (3.8-5.5); Red Cell Distribution Width 14.7 % (9.3-17.3); White Blood Count 21.2 T/CUMM (4-12)
[2017-06-11 07:24] LABS: Albumin 3.1 G/DL (3.4-5.0); Bilirubin,Total 0.7 MG/DL (0.2-1.0); Calcium 8.4 MG/DL (8.5-10.1); Magnesium 2.2 MG/DL (1.8-2.4); Osmolality,Calculated 281.3 MOS/KG (273-304); Potassium 3.4 MMOL/L (3.5-5.1); Total Protein 7.3 G/DL (6.4-8.3)
[2017-06-11 07:41] LABS: Atypical Lymphocytes Few; Eosinophils 1 % (0-10); Giant Platelets Few; Lymphocytes 26 % (20-55); Platelet Estimate Decreased; Segmented Neutrophils 68 % (50-85); Total Cells Counted 100
[2017-06-11] MEDS: PANTOPRAZOLE 40 MG TABLET PO SCH (09:14)
[2017-06-11] MEDS: TAMSULOSIN 0.4 MG CAPSULE PO SCH (13:20)
[2017-06-11] MEDS: GENTAMICIN INJ 180 MG in SODIUM CHLORIDE 0.9% 100 ML IV SCH ×2 (13:20→21:25)
[2017-06-11] MEDS: cefTRIAXone 1,000 MG in SYRINGE 1 EACH IV SCH ×2 (15:36→16:31)
[2017-06-11] MEDS: MORPHINE 2 MG/1 ML SYRINGE IV PRN ×2 (16:36→23:46)
[2017-06-11] MEDS: ENOXAPARIN 40 MG/0.4 ML SYRINGE SUBCUT SCH (17:21)
[2017-06-12] MEDS: GENTAMICIN INJ 180 MG in SODIUM CHLORIDE 0.9% 100 ML IV SCH ×3 (03:26→20:22)
[2017-06-12] MEDS: SODIUM CHLORIDE 0.9% 1,000 ML IV SCH (04:59)
[2017-06-12 06:27] LABS: Basophils % 0.3 % (0.0-0.8); Eosinophils # 0.3 10*3/uL (0.0-0.87); Eosinophils % 2.1 % (0.00-10.9); Hematocrit 47.7 VOL% (42.0-52.0); Hemoglobin 15.8 GM/DL (14.0-18.0); Immature Granulocytes % 0.4 %; Immature Granulocytes Absolute 0.05 #; Lymphocytes # 3.4 10*3/uL (1.4-4.0); Lymphocytes % 26.4 % (21.2-54.2); Mean Corpuscular HGB Conc 33.1 GM/DL (32-36); Mean Corpuscular Hemoglobin 29 PG (27-34); Mean Corpuscular Volume 88.5 FL (87-102); Mean Platelet Volume 11.8 FL (9.6-12.0); Monocytes # 1.1 10*3/uL (0.11-0.8); Monocytes % 8.3 % (1.7-12.7); Neutrophils % 62.5 % (38.7-73.9); Platelet Count 112 T/CUMM (130-400); Red Blood Count 5.39 MC/CUMM (3.8-5.5); Red Cell Distribution Width 14.8 % (9.3-17.3); White Blood Count 12.8 T/CUMM (4-12)
[2017-06-12 07:05] LABS: Calcium 8.2 MG/DL (8.5-10.1); Magnesium 2.1 MG/DL (1.8-2.4); Osmolality,Calculated 280.4 MOS/KG (273-304); Potassium 3.2 MMOL/L (3.5-5.1)
[2017-06-12] MEDS: PANTOPRAZOLE 40 MG TABLET PO SCH (08:36)
[2017-06-12] MEDS: TAMSULOSIN 0.4 MG CAPSULE PO SCH (08:36)
[2017-06-12] MEDS ORDERED: LORazepam 0.5 MG TABLET PO PRN (11:09)
[2017-06-12] MEDS ORDERED: POTASSIUM CHLORIDE 20 MEQ TABLET PO ONE (11:14)
[2017-06-12] MEDS: VALSARTAN 160 MG TABLET PO SCH (11:51)
[2017-06-12] MEDS: METOPROLOL SUCCINATE XL 100 MG TABLET PO SCH (11:51)
[2017-06-12] MEDS: NICOTINE 21 MG/24 HR PATCH TRANSDERM SCH (11:51)
[2017-06-12] MEDS: ASPIRIN EC 81 MG TABLET PO SCH (11:51)
[2017-06-12] MEDS: cefTRIAXone 1,000 MG in SYRINGE 1 EACH IV SCH (16:21)
[2017-06-12] MEDS: IBUPROFEN 800 MG TABLET PO SCH ×2 (16:21→20:48)
[2017-06-12] MEDS: ENOXAPARIN 40 MG/0.4 ML SYRINGE SUBCUT SCH (17:45)
[2017-06-13] MEDS: GENTAMICIN INJ 180 MG in SODIUM CHLORIDE 0.9% 100 ML IV SCH ×2 (03:21→11:30)
[2017-06-13 06:44] LABS: Basophils # 0.1 10*3/uL (0.0-0.2); Basophils % 0.6 % (0.0-0.8); Eosinophils # 0.2 10*3/uL (0.0-0.87); Eosinophils % 2.8 % (0.00-10.9); Hematocrit 48.9 VOL% (42.0-52.0); Hemoglobin 16.9 GM/DL (14.0-18.0); Immature Granulocytes % 0.6 %; Immature Granulocytes Absolute 0.05 #; Lymphocytes # 2.2 10*3/uL (1.4-4.0); Lymphocytes % 25.7 % (21.2-54.2); Mean Corpuscular HGB Conc 34.6 GM/DL (32-36); Mean Corpuscular Hemoglobin 30 PG (27-34); Mean Corpuscular Volume 86.4 FL (87-102); Mean Platelet Volume 11.9 FL (9.6-12.0); Monocytes # 0.8 10*3/uL (0.11-0.8); Monocytes % 9.2 % (1.7-12.7); Neutrophils # 5.2 10*3/uL (1.4-7.4); Neutrophils % 61.1 % (38.7-73.9); Platelet Count 109 T/CUMM (130-400); Red Blood Count 5.66 MC/CUMM (3.8-5.5); Red Cell Distribution Width 14.6 % (9.3-17.3); White Blood Count 8.5 T/CUMM (4-12)
[2017-06-13 07:10] LABS: Calcium 8.2 MG/DL (8.5-10.1); Osmolality,Calculated 283.3 MOS/KG (273-304); Potassium 3.5 MMOL/L (3.5-5.1)
[2017-06-13 08:20] VITALS: BP 148/96
[2017-06-13] MEDS: NICOTINE 21 MG/24 HR PATCH TRANSDERM SCH (09:12)
[2017-06-13] MEDS: TAMSULOSIN 0.4 MG CAPSULE PO SCH (09:13)
[2017-06-13] MEDS: METOPROLOL SUCCINATE XL 100 MG TABLET PO SCH (09:13)
[2017-06-13] MEDS: IBUPROFEN 800 MG TABLET PO SCH (09:13)
[2017-06-13] MEDS: VALSARTAN 160 MG TABLET PO SCH (09:13)
[2017-06-13] MEDS: PANTOPRAZOLE 40 MG TABLET PO SCH (09:13)
[2017-06-13] MEDS: ASPIRIN EC 81 MG TABLET PO SCH (09:14)
== END 2017-06-13 12:45 | disposition home or self-care (01) | DRG 694 ==
LOC: N.ED 12:38 → N.EDINP 16:01 → SUATTDRO 16:01 → N.EDINP 17:23 → N.5E 17:41
PROVIDERS: ADMIT Internal Medicine; ATTEND Family Medicine

== ENCOUNTER 2018-02-01 00:57 | Inpatient (IN) ==
[2018-02-01] MEDS ORDERED: ASPIRIN 325 MG TABLET PO STA (01:24)
[2018-02-01 01:34] LABS: Basophils % 0.3 % (0.0-0.8); Eosinophils # 0.3 10*3/uL (0.0-0.87); Eosinophils % 3.8 % (0.00-10.9); Hematocrit 22.8 VOL% (42.0-52.0); Immature Granulocytes % 0.2 %; Immature Granulocytes Absolute 0.02 #; Lymphocytes # 2.8 10*3/uL (1.4-4.0); Lymphocytes % 31.4 % (21.2-54.2); Mean Corpuscular HGB Conc 30.7 GM/DL (32-36); Mean Corpuscular Hemoglobin 24 PG (27-34); Mean Corpuscular Volume 78.6 FL (87-102); Mean Platelet Volume 11.1 FL (9.6-12.0); Monocytes # 0.8 10*3/uL (0.11-0.8); Neutrophils # 4.9 10*3/uL (1.4-7.4); Neutrophils % 55.3 % (38.7-73.9); Platelet Count 137 T/CUMM (130-400); Red Cell Distribution Width 18.1 % (9.3-17.3); White Blood Count 8.9 T/CUMM (4-12)
[2018-02-01 01:56] LABS: Alanine Aminotransferase 10 U/L (16-61); Albumin 2.9 G/DL (3.4-5.0); Alkaline Phosphatase 58 U/L (45-117); Aspartate Amino Transferase 9 U/L (0-37); Bilirubin,Total < 0.39 MG/DL (0.2-1.0); Blood Urea Nitrogen 18 MG/DL (7-18); Calcium 7.8 MG/DL (8.5-10.1); Glucose 120 MG/DL (74-106); Osmolality,Calculated 290.7 MOS/KG (273-304); Potassium 3.2 MMOL/L (3.5-5.1); Sodium 145 MMOL/L (136-145)
[2018-02-01] MEDS ORDERED: ENOXAPARIN 30 MG/0.3 ML SYRINGE SUBCUT STA (02:24)
[2018-02-01] MEDS ORDERED: NITROGLYCERIN 2% OINT 1 INCH/GM PACK TOP STA (02:24)
[2018-02-01] MEDS ORDERED: ENOXAPARIN 100 MG/ML SYRINGE SUBCUT ONE (02:32)
[2018-02-01] MEDS ORDERED: ONDANSETRON 4 MG/2 ML VIAL IV PRN (03:49)
[2018-02-01] MEDS ORDERED: ACETAMINOPHEN 325 MG TABLET PO PRN (03:49)
[2018-02-01] MEDS ORDERED: LORazepam 1 MG TABLET PO PRN (03:53)
[2018-02-01] MEDS ORDERED: SODIUM CHLORIDE 0.9% 1,000 ML IV PRN (04:02)
[2018-02-01 05:12] LABS: Risk Ratio 4.05; VLDL CHOLESTEROL 36.4 MG/DL
[2018-02-01] MEDS ORDERED: POTASSIUM CHLORIDE 20 MEQ TABLET PO ONE (06:00)
[2018-02-01] MEDS: NITROGLYCERIN 2% OINT 1 INCH/GM PACK TOP SCH ×2 (07:16→12:55)
[2018-02-01] MEDS: ASPIRIN EC 81 MG TABLET PO SCH (08:53)
[2018-02-01] MEDS: hydroCHLOROthiazide 25 MG TABLET PO SCH (08:53)
[2018-02-01] MEDS: CHOLECALCIFEROL 5,000 UNIT TABLET PO SCH (08:54)
[2018-02-01] MEDS: amLODIPine 10 MG TABLET PO SCH (08:55)
[2018-02-01] MEDS: VALSARTAN 160 MG TABLET PO SCH (08:55)
[2018-02-01] MEDS: METOPROLOL SUCCINATE XL 100 MG TABLET PO SCH (08:55)
[2018-02-01] MEDS: cloNIDine 0.1 MG TABLET PO SCH ×2 (08:55→20:31)
[2018-02-01] MEDS: NICOTINE 21 MG/24 HR PATCH TRANSDERM SCH (10:10)
[2018-02-01] MEDS ORDERED: BISACODYL 5 MG TABLET PO ONE (12:00)
[2018-02-01 16:08] LABS: Hemoglobin 8.4 GM/DL (14.0-18.0)
[2018-02-01] MEDS ORDERED: MAGNESIUM SULF RIDER 4 GM in PREMIX 1 EACH IV PRN (17:19)
[2018-02-01] MEDS ORDERED: MAGNESIUM SULF RIDER 2 GM in PREMIX 1 EACH IV PRN (17:19)
[2018-02-01] MEDS ORDERED: POLYETHYLENE GLYCOL POWDER 255 GM BOTTLE PO ONE (18:00)
[2018-02-01] MEDS ORDERED: POTASSIUM CHLORIDE 10 MEQ TABLET PO ONE ×2 (18:46→20:16)
[2018-02-01] MEDS ORDERED: BISACODYL 5 MG TABLET ONE (18:46)
[2018-02-01] MEDS: POTASSIUM CHLORIDE 20 MEQ TABLET PO PRN ×3 (18:48→22:56)
[2018-02-01 22:50] LABS: Hematocrit 27.7 VOL% (42.0-52.0); Hemoglobin 8.9 GM/DL (14.0-18.0)
[2018-02-02 03:19] LABS: Hematocrit 26.3 VOL% (42.0-52.0); Hemoglobin 8.5 GM/DL (14.0-18.0)
[2018-02-02 03:23] LABS: INR 1.1; PT Patient Result 11.1 SECS
[2018-02-02 03:34] LABS: Osmolality,Calculated 280.3 MOS/KG (273-304); Potassium 3.6 MMOL/L (3.5-5.1)
[2018-02-02 03:46] LABS: % Iron Saturation 4.7 % (18-50); Ferritin 11.1 ng/ml (26-388)
[2018-02-02] MEDS: NICOTINE 21 MG/24 HR PATCH TRANSDERM SCH (09:53)
[2018-02-02] MEDS ORDERED: POLYETHYLENE GLYCOL POWDER 255 GM BOTTLE PO ONE (12:00)
[2018-02-02] MEDS ORDERED: PROPOFOL 200 MG/20 ML VIAL IV ONE (12:38)
[2018-02-02] MEDS ORDERED: LIDOCAINE 100 MG/5 ML SYRINGE ONE (12:38)
[2018-02-02] MEDS: ASPIRIN EC 81 MG TABLET PO SCH (14:21)
[2018-02-02] MEDS: VALSARTAN 160 MG TABLET PO SCH (14:21)
[2018-02-02] MEDS: CHOLECALCIFEROL 5,000 UNIT TABLET PO SCH (14:22)
[2018-02-02] MEDS: METOPROLOL SUCCINATE XL 100 MG TABLET PO SCH (14:22)
[2018-02-02] MEDS: hydroCHLOROthiazide 25 MG TABLET PO SCH (14:22)
[2018-02-02] MEDS: cloNIDine 0.1 MG TABLET PO SCH ×2 (14:22→22:43)
[2018-02-02] MEDS: amLODIPine 10 MG TABLET PO SCH (14:23)
[2018-02-03 04:11] LABS: Basophils # 0.1 10*3/uL (0.0-0.2); Basophils % 0.7 % (0.0-0.8); Eosinophils # 0.3 10*3/uL (0.0-0.87); Eosinophils % 4.2 % (0.00-10.9); Hematocrit 26.7 VOL% (42.0-52.0); Hemoglobin 8.4 GM/DL (14.0-18.0); Immature Granulocytes % 0.4 %; Immature Granulocytes Absolute 0.03 #; Lymphocytes # 2.9 10*3/uL (1.4-4.0); Lymphocytes % 37.3 % (21.2-54.2); Mean Corpuscular HGB Conc 31.5 GM/DL (32-36); Mean Corpuscular Hemoglobin 25 PG (27-34); Mean Corpuscular Volume 79.7 FL (87-102); Mean Platelet Volume 11.9 FL (9.6-12.0); Monocytes # 0.8 10*3/uL (0.11-0.8); Monocytes % 10.5 % (1.7-12.7); Neutrophils # 3.6 10*3/uL (1.4-7.4); Neutrophils % 46.9 % (38.7-73.9); Platelet Count 147 T/CUMM (130-400); Red Blood Count 3.35 MC/CUMM (3.8-5.5); Red Cell Distribution Width 18.1 % (9.3-17.3); White Blood Count 7.6 T/CUMM (4-12)
[2018-02-03 04:47] LABS: Calcium 8.2 MG/DL (8.5-10.1); Osmolality,Calculated 278.4 MOS/KG (273-304); Potassium 3.4 MMOL/L (3.5-5.1)
[2018-02-03] MEDS ORDERED: MAGNESIUM CITRATE 300 ML BOTTLE PO ONE (06:00)
[2018-02-03] MEDS ORDERED: PROPOFOL 200 MG/20 ML VIAL IV ONE (10:00)
[2018-02-03] MEDS ORDERED: LIDOCAINE 100 MG/5 ML SYRINGE ONE (10:00)
[2018-02-03] MEDS: CHOLECALCIFEROL 5,000 UNIT TABLET PO SCH (10:10)
[2018-02-03] MEDS: hydroCHLOROthiazide 25 MG TABLET PO SCH (10:10)
[2018-02-03] MEDS: VALSARTAN 160 MG TABLET PO SCH (10:10)
[2018-02-03] MEDS: amLODIPine 10 MG TABLET PO SCH (10:10)
[2018-02-03] MEDS: cloNIDine 0.1 MG TABLET PO SCH (10:10)
[2018-02-03] MEDS: ASPIRIN EC 81 MG TABLET PO SCH (10:10)
[2018-02-03] MEDS: NICOTINE 21 MG/24 HR PATCH TRANSDERM SCH (10:48)
[2018-02-03] MEDS: METOPROLOL SUCCINATE XL 100 MG TABLET PO SCH (10:48)
[2018-02-03 14:17] VITALS: BP 104/72
== END 2018-02-03 16:29 | disposition home or self-care (01) | DRG 378 ==
LOC: N.ED 00:57 → N.EDINP 04:08
PROVIDERS: ADMIT Internal Medicine; ATTEND Internal Medicine

== ENCOUNTER 2019-11-14 21:45 | Observation (INO) ==
[2019-11-14] MEDS ORDERED: ALUM/MAG/SIMETH/LIDO VISC 1:1 30 ML BOTTLE PO STA (22:33)
[2019-11-14] MEDS ORDERED: NITROGLYCERIN 2% OINT 1 INCH/GM PACK TOP STA (22:33)
[2019-11-14] MEDS ORDERED: ASPIRIN 325 MG TABLET PO STA (22:33)
[2019-11-14] MEDS ORDERED: ONDANSETRON 4 MG/2 ML VIAL IV STA (22:33)
[2019-11-14] MEDS ORDERED: MORPHINE 4 MG/1 ML VIAL IV STA (22:33)
[2019-11-14 22:46] LABS: Basophils # 0.1 10*3/uL (0.0-0.2); Basophils % 0.5 % (0.0-0.8); Eosinophils # 0.2 10*3/uL (0.0-0.87); Hematocrit 51.6 VOL% (42.0-52.0); Hemoglobin 16.7 GM/DL (14.0-18.0); Immature Granulocytes % 0.3 %; Immature Granulocytes Absolute 0.03 #; Lymphocytes # 3.1 10*3/uL (1.4-4.0); Lymphocytes % 28.8 % (21.2-54.2); Mean Corpuscular HGB Conc 32.4 GM/DL (32-36); Mean Corpuscular Volume 86.7 FL (87-102); Mean Platelet Volume 11.1 FL (9.6-12.0); Monocytes % 8.7 % (1.7-12.7); Neutrophils % 59.7 % (38.7-73.9); Platelet Count 117 T/CUMM (130-400); Red Blood Count 5.95 MC/CUMM (3.8-5.5); Red Cell Distribution Width 16.4 % (9.3-17.3); White Blood Count 10.6 T/CUMM (4-12)
[2019-11-14 22:53] LABS: PT Patient Result 10.8 SECS (9.8-11.9)
[2019-11-14 23:25] LABS: Apearance,Urine CLEAR (Clear); Bacteria,Urine Occasional /HPF (Few); Bilirubin,Urine Negative (Negative); Blood, Urine Moderate mg/dL (Negative); Glucose,Urine (UA) Negative (Negative); Ketones,Urine Negative (Negative); Mucus,Urine Occasional /LPF (Occasional); Nitrite,Urine Negative (Negative); Protein,Urine Negative; RBC,Urine 3 /HPF (0-4); Squamous Epithelial Cell,Urine Occasional /HPF (0-10); Urine Color Yellow (Yellow); Urine Specific Gravity 1.014 (1.001-1.035); Urine Urobilinogen < 2.0 EU/DL (0.2-1.0); WBC,Urine 13 /HPF (0-6)
[2019-11-14] MEDS ORDERED: cefTRIAXone 1,000 MG in SODIUM CHLORIDE 0.9% 100 ML IV STA (23:54)
[2019-11-15] MEDS ORDERED: ENOXAPARIN 100 MG/ML SYRINGE SUBCUT STA (01:24)
[2019-11-15] MEDS ORDERED: ENOXAPARIN 120 MG/0.8 ML SYRINGE SUBCUT STA (01:26)
[2019-11-15 01:47] LABS: Alanine Aminotransferase 21 U/L (16-61); Albumin 3.3 G/DL (3.4-5.0); Alkaline Phosphatase 99 U/L (45-117); Aspartate Amino Transferase 17 U/L (0-37); Bilirubin,Total < 0.39 MG/DL (0.2-1.0); Blood Urea Nitrogen 14 MG/DL (7-18); Calcium 8.4 MG/DL (8.5-10.1); Estimated Glom Filtration Rate 153 ML/MIN; Glucose 99 MG/DL (74-106); Osmolality,Calculated 275.7 MOS/KG (273-304); Total Protein 8.3 G/DL (6.4-8.3)
[2019-11-15] MEDS ORDERED: hydrALAZINE 20 MG/1 ML VIAL IV STA ×3 (02:05→02:55)
[2019-11-15] MEDS ORDERED: METOPROLOL TARTRATE 5 MG/5 ML VIAL IV STA (03:26)
[2019-11-15] MEDS ORDERED: MORPHINE 4 MG/1 ML VIAL IV STA (03:27)
[2019-11-15] MEDS ORDERED: ONDANSETRON 4 MG/2 ML VIAL IV STA (03:27)
[2019-11-15] MEDS ORDERED: ALUMINUM/MAGNES/SIMETH MAX STR 30 ML UDCUP PO PRN (04:23)
[2019-11-15] MEDS ORDERED: NICOTINE 21 MG/24 HR PATCH TRANSDERM PRN (04:23)
[2019-11-15] MEDS ORDERED: ACETAMINOPHEN 325 MG TABLET PO PRN (04:23)
[2019-11-15] MEDS ORDERED: ONDANSETRON 4 MG/2 ML VIAL IV PRN (04:23)
[2019-11-15] MEDS ORDERED: guaiFENesin/DM ER 600-30 MG TABLET PO PRN (04:23)
[2019-11-15] MEDS ORDERED: DEXTROSE 50% 25 GM/50 ML VIAL IV PRN (04:23)
[2019-11-15] MEDS ORDERED: GLUCAGON 1 MG VIAL IM PRN (04:23)
[2019-11-15] MEDS ORDERED: diphenhydrAMINE CAP 25 MG CAPSULE PO PRN (04:23)
[2019-11-15] MEDS ORDERED: NITROGLYCERIN SL 0.4 MG TABLET SL PRN (05:11)
[2019-11-15 05:20] LABS: Risk Ratio 3.47; Thyroid Stimulating Hormone 3.31 uIU/ml (0.358-3.74); VLDL CHOLESTEROL 22.4 MG/DL
[2019-11-15] MEDS: hydrALAZINE 20 MG/1 ML VIAL IV PRN (06:29)
[2019-11-15] MEDS: MORPHINE 4 MG/1 ML VIAL IV PRN (06:57)
[2019-11-15] MEDS ORDERED: ASPIRIN 325 MG TABLET PO SCH (09:00)
[2019-11-15] MEDS ORDERED: DIAZEPAM 5 MG TABLET PO ONE (10:02)
[2019-11-15] MEDS ORDERED: diphenhydrAMINE CAP 25 MG CAPSULE PO ONE (10:02)
[2019-11-15] MEDS: ENOXAPARIN 40 MG/0.4 ML SYRINGE SUBCUT SCH (10:15)
[2019-11-15] MEDS: METOPROLOL SUCCINATE XL 100 MG TABLET PO SCH (10:16)
[2019-11-15] MEDS ORDERED: LIDOCAINE 1% 20 ML VIAL ONE (10:24)
[2019-11-15] MEDS ORDERED: SODIUM CHLORIDE 0.45% 1,000 ML IV SCH (10:30)
[2019-11-15] MEDS ORDERED: MIDAZOLAM 2 MG/2 ML VIAL ONE (10:33)
[2019-11-15] MEDS ORDERED: NITROGLYCERIN DRIP 50 MG/250 ML BOTTLE IV ONE (10:33)
[2019-11-15] MEDS ORDERED: VERAPAMIL 5 MG/2 ML VIAL ONE (10:33)
[2019-11-15] MEDS ORDERED: fentaNYL 100 MCG/2 ML VIAL ONE (10:33)
[2019-11-15] MEDS ORDERED: ENOXAPARIN 30 MG/0.3 ML SYRINGE ONE (11:02)
[2019-11-15] MEDS ORDERED: TIROFIBAN 5,000 MCG/100 ML PREMIX IV ONE (11:09)
[2019-11-15] MEDS ORDERED: hydrALAZINE 20 MG/1 ML VIAL ONE (11:50)
[2019-11-15] MEDS ORDERED: PROMETHAZINE 25 MG/1 ML VIAL ONE (12:13)
[2019-11-15] MEDS ORDERED: TICAGRELOR 90 MG TABLET ONE (12:43)
[2019-11-15] MEDS ORDERED: ROSUVASTATIN 20 MG TABLET PO SCH ×2 (21:00)
[2019-11-15] MEDS: TICAGRELOR 90 MG TABLET PO SCH (21:32)
[2019-11-16] MEDS: hydrALAZINE 20 MG/1 ML VIAL IV PRN (04:29)
[2019-11-16] MEDS: MORPHINE 4 MG/1 ML VIAL IV PRN (06:47)
[2019-11-16] MEDS ORDERED: cloNIDine 0.1 MG TABLET PO SCH (09:00)
[2019-11-16] MEDS ORDERED: amLODIPine 10 MG TABLET PO SCH ×2 (09:00)
[2019-11-16] MEDS ORDERED: ASPIRIN EC 81 MG TABLET PO SCH (09:00)
[2019-11-16] MEDS ORDERED: PANTOPRAZOLE 40 MG TABLET PO SCH (09:00)
[2019-11-16] MEDS: TICAGRELOR 90 MG TABLET PO SCH (09:47)
[2019-11-16] MEDS: ENOXAPARIN 40 MG/0.4 ML SYRINGE SUBCUT SCH (09:47)
[2019-11-16] MEDS: METOPROLOL SUCCINATE XL 100 MG TABLET PO SCH (09:47)
[2019-11-16 10:42] LABS: Basophils % 0.4 % (0.0-0.8); Eosinophils # 0.1 10*3/uL (0.0-0.87); Eosinophils % 1.2 % (0.00-10.9); Hematocrit 54.8 VOL% (42.0-52.0); Hemoglobin 18.4 GM/DL (14.0-18.0); Immature Granulocytes % 0.5 %; Immature Granulocytes Absolute 0.05 #; Lymphocytes # 1.8 10*3/uL (1.4-4.0); Lymphocytes % 16.3 % (21.2-54.2); Mean Corpuscular HGB Conc 33.6 GM/DL (32-36); Mean Corpuscular Volume 84.4 FL (87-102); Mean Platelet Volume 11.1 FL (9.6-12.0); Monocytes % 8.5 % (1.7-12.7); Neutrophils % 73.1 % (38.7-73.9); Platelet Count 115 T/CUMM (130-400); Red Blood Count 6.49 MC/CUMM (3.8-5.5); Red Cell Distribution Width 17.7 % (9.3-17.3)
[2019-11-16 11:13] LABS: Albumin 3.2 G/DL (3.4-5.0); Bilirubin,Total 0.7 MG/DL (0.2-1.0); Calcium 8.6 MG/DL (8.5-10.1); Osmolality,Calculated 276.8 MOS/KG (273-304); Total Protein 8.5 G/DL (6.4-8.3)
[2019-11-16 11:17] LABS: Troponin I 5.49 NG/ML (0.00-0.045)
[2019-11-16 11:53] VITALS: BP 154/100
== END 2019-11-16 12:35 | disposition home or self-care (01) ==
LOC: EDUNIT# → EDBD → N.EDINP 21:45 → N.ED 21:45 → N.EDINP 11-15 05:40 → N.TELES 11-15 06:07
PROVIDERS: ADMIT Hospitalist; ATTEND Hospitalist
PROC: CLCCHCL (ICD-10-PCS; 2019-11-15 10:45)